=== PATIENT | female | born 1960 | race Caucasian/White ===

== ENCOUNTER 2018-10-24 16:03 | Observation (INO) | payer OTHER ==
--- NOTE | 2018-10-24 16:09 | PDOC ---
Rapid Medical Evaluation Medical Evaluation: I have performed a brief in-person evaluation of this patient. The patient presents with a chief complaint of: No sig PMH; C/O chest tightness/ pressure and lightheadedness today around 1:15 PM while working at [employer]; went to Urgent Care where EKG was done and referred to ED Pertinent physical exam findings: In NAD, lungs CTA, cardio RRR I have ordered the following: Labs, EKG, CXR The patient will proceed to the ED for further evaluation. 10/24/18 16:05
--- NOTE | 2018-10-24 16:38 | PDOC ---
Attending Attestation - HPI HPI: This is a 57 year old female, with no significant past medical history, who presents to the emergency department today complaining of chest tightness for 4 hours. Patient notes she was at her job earlier today when the chest tightness in the began. Patient describes the chest tightness as intermittent, localized to the substernal border, sharp, and 7/10 in nature. She also reports associated throat tightness, SOB, lightheadedness, and tiredness. Patient denies a history of similar symptoms or pain radiating to her back. She states she is typically stressed because of her work. The patient denies headache and dizziness. Denies fever, chills, diarrhea and constipation. Denies dysuria, frequency, urgency and hematuria. Allergies: NKA Past surgical history: None reported Social history: No reported Family history: ALEX- mother passed at 57, sister has multiple stents PCP: none noted 10/24/18 18:23 - Physicial Exam PE: GENERAL: The patient is in no acute distress. HEAD: Normal with no signs of trauma. EYES: PERRLA, EOMI, sclera anicteric, conjunctiva clear. ENT: Ears normal, nares patent, oropharynx clear without exudates. Moist mucous membranes. NECK: Normal range of motion, supple without lymphadenopathy, JVD, or masses. LUNGS: Breath sounds equal, clear to auscultation bilaterally. No wheezes, and no crackles. HEART:Regular rate and rhythm, normal S1 and S2 without murmur, rub or gallop. ABDOMEN: Soft, nontender, normoactive bowel sounds. No guarding, no rebound. No masses palpable. EXTREMITIES: Normal range of motion, no edema. No clubbing or cyanosis. No erythema, or tenderness. NEUROLOGICAL: Cranial nerves II through XII grossly intact. Normal speech. No focal neurological deficits. MUSCULOSKELETAL: Back non-tender to palpation, no CVA tenderness SKIN: Warm, Dry, normal turgor, no rashes or lesions noted. 10/24/18 18:28 <Ester Avery - Last Filed: 10/24/18 18:28> - Resident Resident Name: Ursula Peña - ED Attending Attestation I have performed the following: I have examined & evaluated the patient, The case was reviewed & discussed with the resident, I agree w/resident's findings & plan, Exceptions are as noted - Medical Decision Making 57 yo F presenting with a complaint of midsternal chest tightness which began approximately 4 hours prior to arrival in the ER No prior episodes like this (+) dizziness (+) nausea no radiation of chest pain to the back Pt currently has no chest pain Pt has a strong family history Twelve-lead EKG was performed and reviewed by me. There is normal sinus rhythm with a normal rate. The axis is normal. The intervals are normal. There are no ST or T wave abnormalities. Impression: Normal twelve-lead EKG 10/24/18 18:05 Laboratory Tests 10/24/18 10/24/18 16:26 16:26 WBC 6.2 Hgb 14.1 Hct 40.1 Plt Count 195 BUN 16 Creatinine 0.6 Creatine Kinase 137 Troponin I < 0.[address] on observation <Noemy Vallejo - Last Filed: 10/25/18 10:45> Heart Score/ECG Review - ECG Intrepretation Comment:: Normal sinus rhythm. Normal ECG. 10/24/18 17:16 <Ester Avery - Last Filed: 10/24/18 18:28> - History History: Moderately suspicious - Electrocardiogram EKG: Normal - Age Age: 45-65 - Risk Factors Risk Factors Heart Score: Yes Hx Hypertension, Yes Smoking History Based on the list above the patient has:: 1-2 risk factors - Troponin Troponin: </= normal limit - Score Heart Score - Total: 3 <Noemy Vallejo - Last Filed: 10/25/18 10:45>
[2018-10-24 16:54] LABS: BASO % 0.6 % (0-2.0); EOS % 1.4 % (0-4.5); HEMATOCRIT 40.1 % (32.4-45.2); HEMOGLOBIN 14.1 GM/dL (10.7-15.3); LYMPH % 25.3 % (8-40); MCH 31.3 pg (25.7-33.7); MCHC 35.2 g/dl (32.0-36.0); MEAN PLT VOLUME 8.7 fl (7.5-11.1); MONO % 8.9 % (3.8-10.2); NEUT % 63.8 % (42.8-82.8); PLATELET COUNT 195 K/MM3 (134-434); RBC 4.51 M/mm3 (3.60-5.2); RDW 13.6 % (11.6-15.6); WHITE BLOOD COUNT 6.2 K/mm3 (4.0-10.0)
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
[2018-10-24 17:41] LABS: BLOOD UREA NITROGEN 16 mg/dL (7-18); CALCIUM 8.7 mg/dL (8.5-10.1); CHLORIDE 108 mmol/L (98-107); CO2 29 mmol/L (21-32); CREATININE 0.6 mg/dL (0.55-1.3); GLUCOSE,RANDOM 85 mg/dL (74-106); SODIUM 142 mmol/L (136-145)
[2018-10-24 17:42] LABS: ANION GAP 4 MMOL/L (8-16); POTASSIUM 4.3 mmol/L (3.5-5.1)
[2018-10-24 19:41] LABS: N-TERMINAL BNP 380.8 pg/ml (5-125)
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
[2018-10-24] MEDS ORDERED: ASPIRIN 325 MG TABLET ONE (20:15)
[2018-10-24] MEDS ORDERED: ASPIRIN 325 MG ENTERIC COATED TABLET (FP) PO ONE (20:15)
--- NOTE | 2018-10-24 20:33 | PN ---
Teaching Attending Note Name of Resident: Irasema Mata ATTENDING PHYSICIAN STATEMENT I saw and evaluated the patient. I reviewed the resident's note and discussed the case with the resident. I agree with the resident's findings and plan as documented. SUBJECTIVE: Patient is a 57 year old woman with no significant PMH who presents with acute onset of chest pain. Patient was walking around at work when she suddenly felt chest tightness. Pain is "tightness" substernal, intermittent, 7/10 with no radiation. Had shortness of breath and lightheadedness. Denies palpitations, nausea or diaphoresis. Also notes she felt her throat closing. Patient states she sat down the pain improved. Pain returned 2-3 hours later prompting her visit urgent care. At urgent care states her ECG was normal and her BP was 150' s/90's. No previous history of similar pain. Has not been evaluated by a primary care doctor in 2 years but states through a wellness check at work her blood pressure was well controlled. Family history significant for maternal MA at age 57 and her sister had MA s/p stent x3. 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 OBJECTIVE: Alert Vital Signs Period Temp Pulse Resp BP Sys/Strange Pulse Ox Last 24 Hr 97.8 F 68-70 18-18 144-161/77-79 99-100 HEENT: No Jaundice, eye redness or discharge, PERRLA, EOMI. Normocephalic, atraumatic. External ears are normal and hearing is grossly intact. No nasal discharge. Neck: Supple, nontender. No palpable adenopathy or thyromegaly. No JVD Chest: Good effort. Clear to auscultation and percussion. Heart: Regular. No S3, rub or murmur Abdomen: Not distended, soft, nontender and no HSM. No rebound or guarding. Normoactive bowel sounds. Ext: Peripheral pulses intact. No leg edema. Skin: Warm and dry. No petechiae, rash or ecchymosis. Neuro: Alert. Oriented x3. CN 2-12 grossly intact. Sensation grossly intact in all four extremities and DTR are symmetric. Current Medications Generic Name Dose Route Start Last Admin Trade Name Freq PRN Reason Stop Dose Admin Heparin Sodium (Porcine) 5,000 unit 10/25/18 06:00 Heparin - SQ TID [facility] Home Medications Medication Instructions Recorded NK [No Known Home Medication] 10/24/18 Abnormal Lab Results 10/24/18 16:26 Chloride 108 H Anion Gap 4 L B-Natriuretic Peptide 380.8 H ASSESSMENT AND PLAN: 1. Chest pain - No acute ST-T changes on EKG and initial troponin is negative. No acute pathology on CXR. She has risk factors for CAD. She got Aspirin 325 mg in the ER and will get Metoprolol if hypertension persists. Admit to telemetry to rule out ACS. Get fasting lipids, ECHO and cardiology consult. 2. Obesity - Will provide patient all the necessary assistance, counseling and positive reinforcement to facilitate weight loss. Consult medical asst. 3. DVT prophylaxis - Lovenox 40 mg SQ q 24 hours. 4. Advance directives - Full code
[2018-10-25 02:54] VITALS: BMI 34.9
[2018-10-25] MEDS: HEPARIN NA (PORCINE) 5,000 UNITS/ML 1ML VIAL SQ SCH ×3 (05:44→21:22)
[2018-10-25 06:56] LABS: BASO % 0.8 % (0-2.0); EOS % 2.6 % (0-4.5); HEMATOCRIT 39.4 % (32.4-45.2); HEMOGLOBIN 13.8 GM/dL (10.7-15.3); LYMPH % 33.3 % (8-40); MCH 31.2 pg (25.7-33.7); MCHC 35.1 g/dl (32.0-36.0); MEAN CELL VOLUME 89.1 fl (80-96); MEAN PLT VOLUME 8.8 fl (7.5-11.1); MONO % 11.8 % (3.8-10.2); NEUT % 51.5 % (42.8-82.8); PLATELET COUNT 183 K/MM3 (134-434); RBC 4.43 M/mm3 (3.60-5.2); RDW 13.4 % (11.6-15.6)
[2018-10-25 07:11] LABS: ALBUMIN 3.2 g/dl (3.4-5.0); ALK PHOS 65 U/L (45-117); ANION GAP 5 MMOL/L (8-16); BILIRUBIN,TOTAL 0.7 mg/dL (0.2-1); BLOOD UREA NITROGEN 18 mg/dL (7-18); CALCIUM 8.4 mg/dL (8.5-10.1); CHLORIDE 106 mmol/L (98-107); CO2 29 mmol/L (21-32); CREATININE 0.7 mg/dL (0.55-1.3); GLUCOSE,RANDOM 94 mg/dL (74-106); PHOSPHOROUS 4.7 mg/dL (2.5-4.9); POTASSIUM 4.1 mmol/L (3.5-5.1); SGOT/AST 17 U/L (15-37); SGPT/ALT 23 U/L (13-61); SODIUM 140 mmol/L (136-145); TOT PROT 6.3 g/dl (6.4-8.2)
--- NOTE | 2018-10-25 08:48 | PN ---
Teaching Attending Note Name of Resident: Yara Randolph ATTENDING PHYSICIAN STATEMENT I saw and evaluated the patient. I reviewed the resident's note and discussed the case with the resident. I agree with the resident's findings and plan as documented. SUBJECTIVE: Patient is comfortable with no acute distress. OBJECTIVE: Vital Signs Temperature 97.6 F 10/25/18 06:00 Pulse Rate 70 10/25/18 06:00 Respiratory Rate 18 10/25/18 06:00 Blood Pressure 138/70 10/25/18 06:00 O2 Sat by Pulse Oximetry (%) 97 10/25/18 06:00 GENERAL: Awake, alert, and fully oriented, in NAD . HEAD: Normal with no signs of trauma. EYES: Extraocular movements intact, sclera anicteric, conjunctiva clear. EARS, NOSE, THROAT: Oropharynx clear without exudates. Moist mucous membranes. NECK: Normal range of motion, supple without lymphadenopathy, JVD, or masses. LUNGS: Breath sounds equal, clear to auscultation bilaterally. No wheezes, and no crackles. No accessory muscle use. HEART: Regular rate and rhythm, normal S1 and S2 without murmur, rub or gallop. ABDOMEN: Obese, soft, nontender, not distended, normoactive bowel sounds, no guarding, no rebound, no masses. EXTREMITIES: 2+ pulses, no peripheral edema. NEUROLOGICAL: CN 2-12 grossly intact , normal speech. PSYCHIATRIC: Cooperative. Appropriate mood and affect. SKIN: Warm, dry, normal turgor, no rashes. CBCD WBC 5.0 K/mm3 (4.0-10.0) 10/25/18 06:00 RBC 4.43 M/mm3 (3.60-5.2) 10/25/18 06:00 Hgb 13.8 GM/dL (10.7-15.3) 10/25/18 06:00 Hct 39.4 % (32.4-45.2) 10/25/18 06:00 MCV 89.1 fl (80-96) 10/25/18 06:00 MCHC 35.1 g/dl (32.0-36.0) 10/25/18 06:00 RDW 13.4 % (11.6-15.6) 10/25/18 06:00 Plt Count 183 K/MM3 (134-434) 12/20/18 06:00 MPV 8.8 fl (7.5-11.1) 10/25/18 06:00 CMP Sodium 140 mmol/L (136-145) 10/25/18 06:00 Potassium 4.1 mmol/L (3.5-5.1) 10/25/18 06:00 Chloride 106 mmol/L (98-107) 10/25/18 06:00 Carbon Dioxide 29 mmol/L (21-32) 10/25/18 06:00 Anion Gap 5 MMOL/L (8-16) L 10/25/18 06:00 BUN 18 mg/dL (7-18) 10/25/18 06:00 Creatinine 0.7 mg/dL (0.55-1.3) 10/25/18 06:00 Creat Clearance w eGFR > 60 (>60) 10/25/18 06:00 Random Glucose 94 mg/dL (74-106) 10/25/18 06:00 Calcium 8.4 mg/dL (8.5-10.1) L 10/25/18 06:00 Total Bilirubin 0.7 mg/dL (0.2-1) 10/25/18 06:00 AST 17 U/L (15-37) 10/25/18 06:00 ALT 23 U/L (13-61) 10/25/18 06:00 Alkaline Phosphatase 65 U/L (45-117) 10/25/18 06:00 Total Protein 6.3 g/dl (6.4-8.2) L 10/25/18 06:00 Albumin 3.2 g/dl (3.4-5.0) L 10/25/18 06:00 CARDIAC ENZYMES Creatine Kinase 137 IU/L (26-192) 10/24/18 16:26 Troponin I < 0.02 ng/ml (0.00-0.05) 10/25/18 06:00 Current Medications Generic Name Dose Route Start Last Admin Trade Name Freq PRN Reason Stop Dose Admin Acetaminophen 650 mg 10/25/18 08:45 Tylenol - PO Q6H PRN PAIN OR FEVER Heparin Sodium (Porcine) 5,000 unit 10/25/18 06:00 10/25/18 05:44 Heparin - SQ Not Given TID [facility] Home Medications Medication Instructions Recorded NK [No Known Home Medication] 10/24/18 Laboratory Tests 10/24/18 10/24/18 10/25/18 16:26 22:55 06:00 Hemoglobin A1c % Troponin I < 0.02 < 0.02 < 0.02 B-Natriuretic Peptide 380.8 H Triglycerides Cholesterol Total LDL Cholesterol HDL Cholesterol TSH 10/25/18 10/25/18 06:00 06:00 Hemoglobin A1c % 5.8 Troponin I B-Natriuretic Peptide Triglycerides 212 H Cholesterol 232 H Total LDL Cholesterol 146 H HDL Cholesterol 39 L TSH 2.78 ASSESSMENT AND PLAN: The patient is a 57 year old female former smoker with strong family history of premature CAD presented to the hospital c/o having chest tightness that started 3 hrs prior to coming to the hospital. # Acute chest pain r/o ACS is ruled out by troponins ; with HEART score 3, seen by wheat inspector will go for the stress test in am . Acute [place] is ruled out. ECG was normal. Echo 10/25/2018 showed normal LV systolic function without regional wall motion abnormalities. Start aspirin 81 mg daily. # HLD will start the patient on Lipitor 40mg and diet Treadmill exercise nuclear stress test for risk stratification in am DVt Px: heparin
[2018-10-25] MEDS ORDERED: ACETAMINOPHEN 325 MG TABLET (FP) ONE (09:11)
[2018-10-25] MEDS: ACETAMINOPHEN 325 MG TABLET (FP) PO PRN ×2 (09:19→21:22)
--- NOTE | 2018-10-25 12:05 | EKG ---
Test Reason : Blood Pressure : / mmHG Vent. Rate : 068 BPM Atrial Rate : 068 BPM P-R Int : 120 ms QRS Dur : 072 ms QT Int : 408 ms P-R-T Axes : 066 055 052 degrees QTc Int : 433 ms NORMAL SINUS RHYTHM NORMAL ECG NO PREVIOUS ECGS AVAILABLE Confirmed by KHURRAM TATE MD ([id number]) on 10/25/2018 12:05:06 PM Referred By: Confirmed By:KHURRAM TATE MD
--- NOTE | 2018-10-25 15:59 | ECHO ---
Name: LISA SCOTT Exam:Adult Echocardiogram Study Date: 10/25/2018 11:29 AM Age: 57 yrs Reason For Study: Chest pain Height: 64 in Weight: 190 lb BSA: 1.9 m2 MMode/2D Measurements & Calculations IVSd: 0.85 cm Ao root diam: 2.2 cm LVIDd: 4.1 cm LA dimension: 3.1 cm LVIDs: 2.6 cm LVPWd: 0.92 cm EDV(Teich): 74.0 ml LAV (MOD-bp): 35.3 ml ESV(Teich): 24.1 ml Doppler Measurements & Calculations MV E max linda: 99.9 cm/sec MR max linda: 397.4 cm/sec MV A max linda: 110.1 cm/sec MR max P.2 mmHg MV E/A: 0.91 MV dec time: 0.18 sec TR max linda: 253.1 cm/sec Med Peak E' Linda: 7.7 cm/sec TR max P.7 mmHg Med E/e': 12.9 Lat Peak E' Linda: 9.9 cm/sec Lat E/e': 10.1 PI Vmax: 108.6 cm/sec Procedure A complete two-dimensional transthoracic echocardiogram was performed (2D, M-mode, Doppler and color flow Doppler). Left Ventricle The left ventricular size, thickness and function are normal. The left ventricular ejection fraction is normal. Ejection Fraction = 60-65%. The left ventricular wall motion is normal. Right Ventricle The right ventricle is normal in size and function. Atria Normal left and right atrial size and function. Mitral Valve There is no mitral regurgitation noted. Tricuspid Valve There is mild tricuspid regurgitation. Right ventricular systolic pressure is normal. Aortic Valve No hemodynamically significant valvular aortic stenosis. No aortic regurgitation is present. Pulmonic Valve There is no pulmonic valvular regurgitation. Great Vessels The aortic root is normal size. Pericardium/Pleura There is no pericardial effusion. Interpretation Summary The left ventricular size, thickness and function are normal The right ventricle is normal in size and function. There is mild tricuspid regurgitation. MD Hubert Chacko 10/25/2018 03:58 PM
--- NOTE | 2018-10-25 16:31 | CON.CARD ---
Consult Consult Specialty:: Cardiology Referred by:: Dr. Kincaid Reason for Consultation:: Chest pain - History of Present Illness Chief Complaint: Chest pain History of Present Illness: 57 year old woman, former smoker with strong family history of premature CAD, no significant medical problem admitted 10/24/2018 with chest pain. The patient developed chest tightness with radiation to her throat/neck at work on the day of admission. Her chest discomfort happened intermittently, lasted 5- 15 minutes for several hours. She went to an urgent care where she had BP 155/ 84 and ECG. She was referred to the hospital for admission. She was ruled out for acute [place]. ECG was normal. Echo 10/25/2018 showed normal LV systolic function without regional wall motion abnormalities. She has no recurrent chest pain after arriving on the floor. - History Source History Provided By: Patient, Medical Record Limitations to Obtaining History: No Limitations - Past Medical History ...: No - Alcohol/Substance Use Hx Alcohol Use: No - Smoking History Smoking history: Former smoker Have you smoked in the past 12 months: No Aproximately how many cigarettes per day: 10 If you are a former smoker, when did you quit?: 1997 Home Medications - Allergies Allergies/Adverse Reactions: Allergies Allergy/AdvReac Type Severity Reaction Status Date / Time No Known Allergies Allergy Verified 10/24/18 16:10 - Home Medications Home Medications: Ambulatory Orders NK [No Known Home Medication] 10/24/18 Review of Systems - Review of Systems Constitutional: reports: No Symptoms Eyes: reports: No Symptoms HENT: reports: No Symptoms Neck: reports: No Symptoms Cardiovascular: reports: Chest Pain Respiratory: reports: No Symptoms Gastrointestinal: reports: No Symptoms Genitourinary: reports: No Symptoms Breasts: reports: No Symptoms Reported Musculoskeletal: reports: No Symptoms Integumentary: reports: No Symptoms Neurological: reports: No Symptoms Endocrine: reports: No Symptoms Hematology/Lymphatic: reports: No Symptoms Psychiatric: reports: No Symptoms Vital Signs: Vital Signs Temperature 97.5 F L 10/25/18 14:00 Pulse Rate 76 10/25/18 14:00 Respiratory Rate 18 10/25/18 14:00 Blood Pressure 126/76 10/25/18 14:00 O2 Sat by Pulse Oximetry (%) 95 10/25/18 14:00 General: Well developed. Well nourished. No acute distress. Head: Normocephalic. Atraumatic, Eyes: PERRLA, EOMI. Sclerae anicteric. Conjunctivae clear. Neck: Supple. No JVD. No bruits. Heart: Normal S1, S2: Regular rhythm and rate. No murmur. No gallop or rub. Lungs: Symmetrical air entry. Clear to auscultation. No crackles. No wheezing or rhonchi. Abdomen: Soft. Bowel sound positive. Non tender. No masses. Extremities: No edema. No clubbing or cyanosis. PD 2+, equal bilaterally. Neuro: Intact, no focal findings. AAO X3. - Other Data Labs, Other Data: CBC, BMP 10/25/18 06:00 10/25/18 06:00 Troponin, BNP 10/24/18 10/24/18 10/25/18 16:26 22:55 06:00 Troponin I < 0.02 < 0.02 < 0.02 B-Natriuretic Peptide 380.8 H Troponin, BNP 10/24/18 10/24/18 10/25/18 16:26 22:55 06:00 Troponin I < 0.02 < 0.02 < 0.02 B-Natriuretic Peptide 380.8 H Assessment/Plan 57 year old woman, former smoker with strong family history of premature CAD, no significant medical problem admitted 10/24/2018 with chest pain. She was ruled out for acute [place]. ECG was normal. Echo 10/25/2018 showed normal LV systolic function without regional wall motion abnormalities. She has no recurrent chest pain after arriving on the floor. Unstable angina with risk factors of CAD: [place] ruled out, no recurrent chest pain. Echo is normal. LDL is elevated with low HDL. Treadmill exercise nuclear stress test for risk stratification. Start aspirin 81 mg daily. We will follow the patient with you.
--- NOTE | 2018-10-25 16:34 | PN ---
Physical Exam: SUBJECTIVE: Patient seen and examined at bedside this morning. No acute events overnight. Patient was admitted because she has been experiencing chest tightness accompanied by lightheadedness that started yesterday afternoon. She described it as sudden onset, midsternal chest tightness, intermittent, that lasted for about 10-15 mins. Patient reported she has had no episodes of chest pain all day today, and reports headache. Otherwise, denies fever, chills, nausea, vomiting, SOB, palpitations, abdominal pain, diarrhea, constipation. OBJECTIVE: Vital Signs Period Temp Pulse Resp BP Sys/Strange Pulse Ox Last 24 Hr 97.5 F-97.8 F 68-76 18-18 126-161/70-77 95-100 GENERAL: The patient is awake, alert, and fully oriented, in no acute distress. HEAD: Normal with no signs of trauma. EYES: PERRLA, EOMI, sclera anicteric, conjunctiva clear. ENT: Ears normal, nares patent, oropharynx clear without exudates, moist mucous membranes. NECK: Trachea midline, full range of motion, supple. LUNGS: Breath sounds equal, clear to auscultation bilaterally. HEART: Regular rate and rhythm, S1, S2 without murmur, rub or gallop. ABDOMEN: Soft, nontender, nondistended, normoactive bowel sounds. EXTREMITIES: 2+ pulses, warm, well-perfused, no edema. NEUROLOGICAL: Cranial nerves II through XII grossly intact. Normal speech, gait not observed. PSYCH: Normal mood, normal affect. SKIN: Warm, dry, normal turgor, no rashes or lesions noted. Laboratory Results - last 24 hr 10/24/18 10/24/18 10/24/18 16:26 16:26 16:45 WBC 6.2 RBC 4.51 Hgb 14.1 Hct 40.1 MCV 89.0 MCH 31.3 MCHC 35.2 RDW 13.6 Plt Count 195 MPV 8.7 Absolute Neuts (auto) 4.0 Neutrophils % 63.8 Lymphocytes % 25.3 Monocytes % 8.9 Eosinophils % 1.4 Basophils % 0.6 Nucleated RBC % 0 Sodium 142 Potassium 4.3 Chloride 108 H Carbon Dioxide 29 Anion Gap 4 L BUN 16 Creatinine 0.6 Creat Clearance w eGFR > 60 Random Glucose 85 Hemoglobin A1c % Calcium 8.7 Phosphorus Magnesium Total Bilirubin AST ALT Alkaline Phosphatase Creatine Kinase 137 Troponin I < 0.02 B-Natriuretic Peptide 380.8 H Total Protein Albumin Triglycerides Cholesterol Total LDL Cholesterol HDL Cholesterol TSH Urine HCG, Qual Negative 10/24/18 10/25/18 10/25/18 22:55 06:00 06:00 WBC 5.0 RBC 4.43 Hgb 13.8 Hct 39.4 MCV 89.1 MCH 31.2 MCHC 35.1 RDW 13.4 Plt Count 183 MPV 8.8 Absolute Neuts (auto) 2.6 Neutrophils % 51.5 Lymphocytes % 33.3 D Monocytes % 11.8 H Eosinophils % 2.6 D Basophils % 0.8 Nucleated RBC % 0 Sodium 140 Potassium 4.1 Chloride 106 Carbon Dioxide 29 Anion Gap 5 L BUN 18 Creatinine 0.7 Creat Clearance w eGFR > 60 Random Glucose 94 Hemoglobin A1c % Calcium 8.4 L Phosphorus 4.7 Magnesium 2.0 Total Bilirubin 0.7 AST 17 ALT 23 Alkaline Phosphatase 65 Creatine Kinase Troponin I < 0.02 < 0.02 B-Natriuretic Peptide Total Protein 6.3 L Albumin 3.2 L Triglycerides Cholesterol Total LDL Cholesterol HDL Cholesterol TSH Urine HCG, Qual 10/25/18 10/25/18 06:00 06:00 WBC RBC Hgb Hct MCV MCH MCHC RDW Plt Count MPV Absolute Neuts (auto) Neutrophils % Lymphocytes % Monocytes % Eosinophils % Basophils % Nucleated RBC % Sodium Potassium Chloride Carbon Dioxide Anion Gap BUN Creatinine Creat Clearance w eGFR Random Glucose Hemoglobin A1c % 5.8 Calcium Phosphorus Magnesium Total Bilirubin AST ALT Alkaline Phosphatase Creatine Kinase Troponin I B-Natriuretic Peptide Total Protein Albumin Triglycerides 212 H Cholesterol 232 H Total LDL Cholesterol 146 H HDL Cholesterol 39 L TSH 2.78 Urine HCG, Qual Active Medications Generic Name Dose Route Start Last Admin Trade Name Freq PRN Reason Stop Dose Admin Acetaminophen 650 mg 10/25/18 08:45 10/25/18 09:19 Tylenol - PO 650 mg Q6H PRN Administration PAIN OR FEVER Heparin Sodium (Porcine) 5,000 unit 10/25/18 06:00 10/25/18 15:23 Heparin - SQ Not Given TID [facility] ASSESSMENT/PLAN: Patient is a 57 year old female with no significant past medical history, presented with chest tightness for a few hours. #Atypical chest pain: rule out ACS, possible MSK -EKG NSR, Trops x3 negative -- [place] ruled out -ASA 325mg given at the ED -Echo: LV size, thickness, and function are normal. RV is normal in size and function. Mild tricuspid regurgitation -Lipid profile: TG 212, Chol 232, LDL 146, HDL 39 -Cardiology (Dr. Araiza) consulted. Recommendations appreciated. -For Treadmill exercise nuclear stress test tomorrow for risk stratification. -Start Aspirin 81 mg daily. #FEN -Not on any standing fluids -Encourage increased oral fluid intake -electrolytes wnl, routine bmp monitoring -Sodium controlled diet -NPO after midnight for stress test #Prophylaxis -Heparin 5000 units sq tid #Disposition -full code -tele Visit type - Emergency Visit Emergency Visit: Yes ED Registration Date: 10/24/18 Care time: The patient presented to the Emergency Department on the above date and was hospitalized for further evaluation of their emergent condition. - New Patient This patient is new to me today: No - Critical Care Critical Care patient: No
[2018-10-25] MEDS ORDERED: ATORVASTATIN CA 40 MG TABLET (FP) PO SCH (22:00)
[2018-10-26] MEDS: HEPARIN NA (PORCINE) 5,000 UNITS/ML 1ML VIAL SQ SCH ×2 (06:04→13:36)
--- NOTE | 2018-10-26 09:50 | PN ---
Teaching Attending Note Name of Resident: Yara Randolph ATTENDING PHYSICIAN STATEMENT I saw and evaluated the patient. I reviewed the resident's note and discussed the case with the resident. I agree with the resident's findings and plan as documented. SUBJECTIVE: Patient is comfortable with no acute distress. Patient came back from stress test. OBJECTIVE: Vital Signs Temperature 97.5 F L 10/26/18 05:39 Pulse Rate 62 10/26/18 05:39 Respiratory Rate 18 10/26/18 09:00 Blood Pressure 144/79 10/26/18 05:39 O2 Sat by Pulse Oximetry (%) 95 10/26/18 09:00 Initial Vital Signs Temp Pulse Resp BP Pulse Ox 97.8 F 70 18 144/79 99 10/24/18 16:07 10/24/18 16:07 10/24/18 16:07 10/24/18 16:07 10/24/18 16:07 GENERAL: Awake, alert, and fully oriented, in NAD . HEAD: Normal with no signs of trauma. EYES: Extraocular movements intact, sclera anicteric, conjunctiva clear. EARS, NOSE, THROAT: Oropharynx clear without exudates. Moist mucous membranes. NECK: Normal range of motion, supple without lymphadenopathy, JVD, or masses. LUNGS: Breath sounds equal, clear to auscultation bilaterally. No wheezes, and no crackles. No accessory muscle use. HEART: Regular rate and rhythm, normal S1 and S2 without murmur, rub or gallop. ABDOMEN: Obese, soft, nontender, not distended, normoactive bowel sounds, no guarding, no rebound, no masses. EXTREMITIES: 2+ pulses, no peripheral edema. NEUROLOGICAL: CN 2-12 grossly intact , normal speech. PSYCHIATRIC: Cooperative. Appropriate mood and affect. SKIN: Warm, dry, normal turgor, no rashes. CBCD WBC 5.0 K/mm3 (4.0-10.0) 10/25/18 06:00 RBC 4.43 M/mm3 (3.60-5.2) 10/25/18 06:00 Hgb 13.8 GM/dL (10.7-15.3) 10/25/18 06:00 Hct 39.4 % (32.4-45.2) 10/25/18 06:00 MCV 89.1 fl (80-96) 10/25/18 06:00 MCHC 35.1 g/dl (32.0-36.0) 10/25/18 06:00 RDW 13.4 % (11.6-15.6) 10/25/18 06:00 Plt Count 183 K/MM3 (134-434) 10/25/18 06:00 MPV 8.8 fl (7.5-11.1) 10/25/18 06:00 CMP Sodium 140 mmol/L (136-145) 10/25/18 06:00 Potassium 4.1 mmol/L (3.5-5.1) 10/25/18 06:00 Chloride 106 mmol/L (98-107) 10/25/18 06:00 Carbon Dioxide 29 mmol/L (21-32) 10/25/18 06:00 Anion Gap 5 MMOL/L (8-16) L 10/25/18 06:00 BUN 18 mg/dL (7-18) 10/25/18 06:00 Creatinine 0.7 mg/dL (0.55-1.3) 10/25/18 06:00 Creat Clearance w eGFR > 60 (>60) 10/25/18 06:00 Random Glucose 94 mg/dL (74-106) 10/25/18 06:00 Calcium 8.4 mg/dL (8.5-10.1) L 10/25/18 06:00 Total Bilirubin 0.7 mg/dL (0.2-1) 10/25/18 06:00 AST 17 U/L (15-37) 10/25/18 06:00 ALT 23 U/L (13-61) 10/25/18 06:00 Alkaline Phosphatase 65 U/L (45-117) 10/25/18 06:00 Total Protein 6.3 g/dl (6.4-8.2) L 10/25/18 06:00 Albumin 3.2 g/dl (3.4-5.0) L 10/25/18 06:00 CARDIAC ENZYMES Creatine Kinase 137 IU/L (26-192) 10/24/18 16:26 Troponin I < 0.02 ng/ml (0.00-0.05) 10/25/18 06:00 Current Medications Generic Name Dose Route Start Last Admin Trade Name Freq PRN Reason Stop Dose Admin Acetaminophen 650 mg 10/25/18 08:45 10/25/18 21:22 Tylenol - PO 650 mg Q6H PRN Administration PAIN OR FEVER Aspirin 81 mg 10/26/18 10:00 10/26/18 09:34 Ecotrin - PO 81 mg DAILY ROSIE Administration Atorvastatin Calcium 40 mg 10/25/18 22:00 10/25/18 21:22 Lipitor - PO 40 mg HS ROSIE Administration Heparin Sodium (Porcine) 5,000 unit 10/25/18 06:00 10/26/18 06:04 Heparin - SQ Not Given TID [facility] Home Medications Medication Instructions Recorded NK [No Known Home Medication] 10/24/18 ASSESSMENT AND PLAN: The patient is a 57 year old female former smoker with strong family history of premature CAD presented to the hospital c/o having chest tightness that started 3 hrs prior to coming to the hospital. # Acute chest pain: patient had a treadmill ECG stress test 10/26/2018 showed no diagnostic ECG changes after exercised 6:45 minutes of Vince protocol and reached 85% MPHR. But developed chest pain during exercise. Discussed with , patient can be discharged home and follow with him as an outpatient for further testing: persantine and cath.as an outpatient. will maximize her medical treatment. She was ruled out for acute [place].Added toprol xl 12.5mg po daily. # HLD will start the patient on Lipitor 20mg and diet , LDL is elevated with low HDL. Treadmill exercise nuclear stress test for risk stratification in am ECG was normal. Echo 10/25/2018 showed normal LV systolic function without regional wall motion abnormalities. She has no recurrent chest pain after arriving on the floor. will discharge the patient home.
[2018-10-26] MEDS ORDERED: ASPIRIN COATED 81 MG TABLET.EC PO SCH (10:00)
--- NOTE | 2018-10-26 12:44 | TRE ---
Protocol Name : IRVING Max Work Load (METS*10) : 81 Time In Exercise Phase : 00:06:45 Max. Systolic BP : 158 mmHg Max Diastolic BP : 80 mmHg Max Heart Rate : 139 BPM Max Predicted Heart Rate : 163 BPM Attending Physician : DR. HEWITT Reason For Termination : Target Heart Rate Achieved Reason for Test : ATYPICAL CHEST PAIN, RULE OUTACS Stress Protocol : IRVING Rest HR : 93 BPM PeakEx METs : 8.1 METS Recovery ECG Response (OLD) : Diagnosis : The patient completed 6:45 of a Standard Irving Protocol, 8 METS. The resting heart rate of 72bpm fortino to a peak of 139bpm = 85% of age predicted maximum. Resting blood pressure of 150/88 remained unchanged with a peak recorded blood pressure of 158/80. The baseline ECG showed NSR 71bpm. Several ventricular couplets were seen during treadmill exercise. The patient complained of chest tightness at peak exercise.There were no diagnostic ischemic ECG changes. CONCLUSION: 1. Negative exercise treadmill stress test with no diagnostic ischemic ECG changes. 2. Arora treadmill score of 3 indicates an overall intermediate risk. 3. Symptoms of chest pain during exercise. Clinical correlation. Confirmed by DEMARCUS HEWITT MD ([id number]) on 10/26/2018 12:44:05 PM
[2018-10-26] MEDS ORDERED: FLU VACCINE QUAD 60 MCG/0.5 ML (MDV 18-19) IM ONE (14:41)
--- NOTE | 2018-10-26 14:51 | PN ---
Progress Note, Physician Chief Complaint: Patient appears comfortable. No recurrent chest pain at rest. No SOB or palpitation. History of Present Illness: 57 year old woman, former smoker with strong family history of premature CAD, no significant medical problem admitted 10/24/2018 with chest pain. The patient developed chest tightness with radiation to her throat/neck at work on the day of admission. Her chest discomfort happened intermittently, lasted 5- 15 minutes for several hours. She went to an urgent care where she had BP 155/ 84 and ECG. She was referred to the hospital for admission. She was ruled out for acute [place]. ECG was normal. Echo 10/25/2018 showed normal LV systolic function without regional wall motion abnormalities. She has no recurrent chest pain after arriving on the floor. Treadmill ECG stress test showed no diagnostic ECG changes after exercised 6:45 minutes of Vince protocol and reached 85% MPHR. But she had chest pain during exercise. - Current Medication List Current Medications: Active Medications Acetaminophen (Tylenol -) 650 mg PO Q6H PRN PRN Reason: PAIN OR FEVER Last Admin: 10/25/18 21:22 Dose: 650 mg Aspirin (Ecotrin -) 81 mg PO DAILY [facility] Last Admin: 10/26/18 09:34 Dose: 81 mg Atorvastatin Calcium (Lipitor -) 40 mg PO HS [facility] Last Admin: 10/25/18 21:22 Dose: 40 mg Heparin Sodium (Porcine) (Heparin -) 5,000 unit SQ TID [facility] Last Admin: 10/26/18 13:36 Dose: 5,000 unit Influenza Virus Vaccine Quadrival (Flulaval Quad [id number]) 60 mcg IM .ONCE ONE Stop: 10/26/18 14:42 - Objective Vital Signs: Vital Signs Temperature 97.5 F L 10/26/18 10:00 Pulse Rate 72 10/26/18 10:00 Respiratory Rate 18 10/26/18 10:00 Blood Pressure 147/74 10/26/18 10:00 O2 Sat by Pulse Oximetry (%) 95 10/26/18 09:00 General: Well developed. Well nourished. No acute distress. Head: Normocephalic. Atraumatic, Eyes: PERRLA, EOMI. Sclerae anicteric. Conjunctivae clear. Neck: Supple. No JVD. No bruits. Heart: Normal S1, S2: Regular rhythm and rate. No murmur. No gallop or rub. Lungs: Symmetrical air entry. Clear to auscultation. No crackles. No wheezing or rhonchi. Abdomen: Soft. Bowel sound positive. Non tender. No masses. Extremities: No edema. No clubbing or cyanosis. PD 2+, equal bilaterally. Neuro: Intact, no focal findings. AAO X3. Labs: CBC, BMP 10/25/18 06:00 10/25/18 06:00 Assessment/Plan 57 year old woman, former smoker with strong family history of premature CAD, no significant medical problem admitted 10/24/2018 with chest pain. She was ruled out for acute [place]. ECG was normal. Echo 10/25/2018 showed normal LV systolic function without regional wall motion abnormalities. She has no recurrent chest pain after arriving on the floor. Treadmill ECG stress test showed no diagnostic ECG changes after exercised 6:45 minutes of Vince protocol and reached 85% MPHR. But she had chest pain during exercise. New angina with risk factors of CAD: [place] ruled out, no recurrent chest pain. Echo is normal. LDL is elevated with low HDL. Treadmill exercise ECG stress test was negative. But she had chest pain during the test. Would discharge the patient today with out-pt cardiac follow up. Add Crestor 10 or Lipitor 20 mg daily on discharge. Continue aspirin 81 mg daily. Please call us for reconsult as needed.
[2018-10-26 15:45] VITALS: BP 121/76; PULSE 86; TEMP 98.2
--- NOTE | 2018-10-26 16:09 | DS ---
Physical Exam: SUBJECTIVE: Patient seen and examined at bedside this morning. No acute events overnight. Patient has no new complaints. Denies any chest pain, shortness of breath, dizziness, weakness, fever, chills, abdominal pain, diarrhea, urinary symptoms. OBJECTIVE: Vital Signs Period Temp Pulse Resp BP Sys/Strange Pulse Ox Last 24 Hr 97.5 F-98.2 F 62-86 16-20 121-147/74-88 95-95 PHYSICAL EXAM GENERAL: The patient is awake, alert, and fully oriented, in no acute distress. HEAD: Normal with no signs of trauma. EYES: PERRLA, EOMI, sclera anicteric, conjunctiva clear. ENT: Ears normal, nares patent, oropharynx clear without exudates, moist mucous membranes. NECK: Trachea midline, full range of motion, supple. LUNGS: Breath sounds equal, clear to auscultation bilaterally. HEART: Regular rate and rhythm, S1, S2 without murmur, rub or gallop. ABDOMEN: Soft, nontender, nondistended, normoactive bowel sounds. EXTREMITIES: 2+ pulses, warm, well-perfused, no edema. NEUROLOGICAL: Cranial nerves II through XII grossly intact. Normal speech, gait not observed. PSYCH: Normal mood, normal affect. SKIN: Warm, dry, normal turgor, no rashes or lesions noted. LABS CBC, BMP 10/25/18 06:00 10/25/18 06:00 HOSPITAL COURSE: Date of Admission:10/24/18 Date of Discharge: 10/26/18 Patient is a 57 year old female with no significant past medical history, with strong family history of cardiac disease, presented with sudden onset midsternal chest tightness. Patient was admitted for further work-up of possible ACS. Cardiology consulted. EKG, Trops and EKG treadmill stress test were negative, however, patient developed chest pain during the stress test. Patient was started on Aspirin 81mg and Atorvastatin 20mg. Patient was discharged with instructions to follow-up with cardiology. Minutes to complete discharge: 35 Discharge Summary Reason For Visit: SENSATION OF CHEST TIGHTNESS Current Active Problems Chest tightness (Acute) Condition: Stable - Instructions Diet, Activity, Other Instructions: You were seen because you had chest pain. Lab tests and an ultrasound of your heart done and were negative for any concerns. You have been started with the following medications. Please take them as prescribed. 1. Aspirin 81 mg daily. 2. Atorvastatin 40mg daily at bedtime. If you notice any new muscle aches or pain, jaundice, please stop taking the Atorvastatin and call your primary care doctor. Eat a high fiber diet and drink plenty of water. Exercise regularly. Maintain a healthy weight. Follow-up with the nurse anesthesia program director (Dr. Araiza) within 1-2 weeks. Call the office to schedule an appointment. Please follow-up with your primary care doctor within 1 week. Please call the Internal Medicine resident clinic at [facility] at [phone] to schedule an appointment with Dr. Daniels. Call 911 or go to the ED if with any worsening chest pain, shortness of breath, sweating, headache, dizziness, fever, chills, nausea, vomiting, or any new concerns noted. Referrals: [facility] [place] [facility] [place] [Provider Group] - 1 Week Juve Araiza MD [Staff Physician] - 1 Week Disposition: HOME - Home Medications Comprehensive Discharge Medication List: Ambulatory Orders Aspirin Coated [Ecotrin -] 81 mg PO DAILY #30 tablet.ec 10/26/18 Atorvastatin Ca [Lipitor] 40 mg PO HS #30 tablet 10/26/18 Metoprolol Succinate 12.5 mg PO DAILY #30 tab.er.24h 10/26/18 This patient is new to me today: Yes Date on this admission: 10/26/18 Emergency Visit: Yes ED Registration Date: 10/24/18 Care time: The patient presented to the Emergency Department on the above date and was hospitalized for further evaluation of their emergent condition. Critical Care patient: No - Discharge Referral Referred to [facility] No
[2018-10-27] MEDS ORDERED: metoPROLOL SUCCINATE 25 MG TAB.SR.24H (FP) PO SCH (10:00)
== END 2018-10-26 16:43 | disposition home or self-care (01) ==
LOC: JER 16:03 → JERBED 18:32 → J4S 23:36
PROVIDERS: ADMIT Internal Medicine; ATTEND Internal Medicine
PROC: 3E013GC Introduction of Other Therapeutic Substance into Subcutaneous Tissue, Percutaneous Approach (ICD-10-PCS; principal; 2018-10-24)
PROC: 3E0234Z Introduction of Serum, Toxoid and Vaccine into Muscle, Percutaneous Approach (ICD-10-PCS; 2018-10-24)
DX: R07.89 Other chest pain (principal); E66.9 Obesity, unspecified; Z68.34 Body mass index [BMI] 34.0-34.9, adult; E78.5 Hyperlipidemia, unspecified; Z23 Encounter for immunization
CPT/HCPCS: 36415; 71045-TC-FY; 80048; 80053; 80061; 82550; 83036; 83721; 83735; 83880; 84100; 84443; 84484; 84703; 85025; 90688; 93005; 93010; 93017; 93018; 93306-TC; 99283-25; G0378; J1644